=== PATIENT | male | born 1985 | race Caucasian/White ===

== ENCOUNTER 2018-09-13 18:43 | Emergency (ER) | payer BC ==
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
[2018-09-13] MEDS: Sodium Chloride 0.9% 10 ML Syringe FLUSH PRN ×2 (19:16→19:29)
[2018-09-13] MEDS: Sodium Chloride 0.9% 2.5 ML Syringe FLUSH PRN ×2 (19:17→19:29)
[2018-09-13] MEDS ORDERED: Sodium Chloride 0.9% 2.5 ML Syringe FLUSH PRN (19:25)
[2018-09-13] MEDS ORDERED: Sodium Chloride 0.9% 10 ML Syringe FLUSH PRN (19:25)
[2018-09-13] MEDS ORDERED: Sodium Chloride 0.9% 1,000 ML IV ONE (19:25)
[2018-09-13 19:42] LABS: CHLORIDE,CL 100 mmol/L (98-107); SODIUM,NA 137 mmol/L (136-148)
[2018-09-13] MEDS ORDERED: Sodium Chloride 0.9% 100 ML ONE (19:48)
[2018-09-13] MEDS: Vancomycin 1 GM SDV ONE ×2 (20:38)
--- NOTE | 2018-09-13 20:58 | US ---
INDICATION: Right calf pain and swelling, history of prior DVT, history of right thigh sarcoma TECHNIQUE: Ultrasound venous duplex lower right extremity. Compression venous exam was performed using morton-scale, color Doppler, and spectral Doppler imaging. COMPARISON: None FINDINGS: Sonographic imaging demonstrates the right common femoral, deep femoral, superficial femoral, popliteal, anterior tibial and posterior tibial veins to be fully compressible with normal color Doppler blood flow. There is an approximately 1.5 x 3.6 cm predominately hypoechoic region in the posterior fossa. IMPRESSION: Normal right lower extremity venous ultrasound, no sign of deep venous thrombosis. 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 Please correlate clinically. CT may be useful for further evaluation in light of the history of trauma. Dictated by Suzie Lopez MD @ Sep 13 2018 8:58PM Signed by Dr. Suzie Lopez @ Sep 13 2018 8:58PM
--- NOTE | 2018-09-13 21:38 | CR ---
INDICATION: Leg pain TECHNIQUE: Tibia-fibula radiograph 2 views right COMPARISON: None FINDINGS: Bone: No acute fractures or aggressive bone lesions are identified. Joint: The visualized knee and ankle joints are unremarkable. No significant joint effusion is seen. Soft tissue: Unremarkable. No radiopaque foreign bodies are seen. IMPRESSIONS: 1. No acute osseous injuries or abnormalities are noted. 2. If there is clinical concern for fasciitis, evaluation with MRI or CT is recommended. Dictated by Duong Burrows MD @ 09/13/2018 9:37:01 PM Dictated by: Duong Burrows MD @ 09/13/2018 21:37:05 (Electronically Signed)
--- NOTE | 2018-09-13 21:38 | CR ---
INDICATION: Leg pain TECHNIQUE: Femur radiograph 2 views on 4 films right COMPARISON: None FINDINGS: Bone: No acute fractures or aggressive bone lesions are identified. Joint: The hip and visualized knee joints are unremarkable in appearance. No significant joint effusion is seen. Soft tissue: Multiple surgical clips are present in the soft tissues of the medial thigh. No radiopaque foreign bodies or soft tissue emphysema by radiography seen. IMPRESSION: 1. No acute osseous injuries or abnormalities are noted. Dictated by Duong Burrows MD @ 09/13/2018 9:35:41 PM Dictated by: Duong Burrows MD @ 09/13/2018 21:35:54 (Electronically Signed)
== END 2018-09-13 21:56 | disposition left against medical advice (07) ==
LOC: MW.ED 18:43
DX: T79.6XXA Traumatic ischemia of muscle, initial encounter (principal); L03.115 Cellulitis of right lower limb; Z91.14 Patient's other noncompliance with medication regimen
CPT/HCPCS: 36415; 73552; 73590; 80053; 82550; 83605; 85025; 85610; 87040; 93971; 96361; 96365; 99284; J3370; J7040; J7050; J7030